=== PATIENT | female | born 1945 | race African-American/Black ===

== ENCOUNTER 2016-12-23 21:50 | Inpatient (IN) | payer OTHER ==
[~2016-12-23] VITALS: Ht 152.4 cm; Wt 79.9 kg
--- NOTE | ~2016-12-23 | P ---
[facility] [place] [address] PROCEDURE REPORT Name: TISH RANKIN Room #: 450-P ADM IN M.R.#: [id number] Admission: 12/23/16 Attend Phys: Justice Zamudio MD Discharge: Date of : 47 Report #: [id number] THIS REPORT FOR: //name// CC: [facility] physician/PCP Justice Zamudio MD Patient's Chart DATE OF SERVICE: 12/26/[address] Justice Zamudio. INDICATION FOR PROCEDURE: The patient has epigastric tenderness, nausea and vomiting. Informed consent for this procedure was obtained prior to the administration of any medication. The risks of the procedure include bleeding, perforation, infection, complications of sedation and the possibility I could miss something have been explained to the patient. She has indicated her consent by signing. Propofol was slowly titrated before and during this procedure for patient comfort by the anesthesia service. The Diabetican upper videoscope was introduced through the upper esophageal sphincter and advanced under direct visualization to the descending duodenum. Findings are noted on withdrawal of the scope. The duodenal mucosa appears normal throughout its entirety except for a nodular duodenal bulb. I biopsied this x 2 for histopathology with good hemostasis noted after the biopsies. Pylorus and in the prepyloric area, there is an erosive gastritis that is moderate. There are more erosions in the antrum and body of the stomach. Biopsies are obtained x 2 for histopathology. Cardia and fundus, normal mucosa. Retroflex view did not reveal any other abnormalities. The scope was withdrawn to the esophagus. The Z-line is appropriately located at the top of the gastric folds and appears normal. It appears the patient has sloughed some of the esophageal mucosa for some reason and it is being replaced now with more normal appearing tissue. Scope was withdrawn. The patient was turned for flexible sigmoidoscopy. IMPRESSION: 1. Nodular duodenal bulb biopsied for histopathology. 2. Distally erosive gastritis, biopsied for histopathology. Good hemostasis was noted after all biopsies. 3. Sloughing of the esophageal lining. It appears to be being replaced. My recommendations were for us to await the biopsy results. We will increase her PPIs to b.i.d. and we will proceed with flexible sigmoidoscopy at this time. [address] [address] PROCEDURE REPORT Name: TISH RANKIN Room #: 450-P [facility] IN .R.#: [id number] Admission: 12/23/16 Attend Phys: Justice Zamudio MD Discharge: Date of : 47 Report #: [id number] Thank you very much once again for allowing me to participate in her care, Dr. Zamudio. PROCEDURE: This is a flexible sigmoidoscopy with BICAP. INDICATIONS FOR PROCEDURE: Hematochezia, history of rectovaginal fistula, probably related to diverticulosis. Informed consent for this procedure was obtained prior to the administration of any medication. The risks of the procedure which include bleeding, perforation, infection, complications of sedation and the possibility I could miss something have been explained to the patient and she has indicated her consent by signing. Propofol was slowly titrated before and during this procedure and the EGD that preceded it. The Fujinon colonoscope was introduced through the anal sphincter and advanced under direct visualization to 25 cm. There is a lot of diverticulosis in the sigmoid colon and I cannot manage to advance the scope beyond this point because I cannot make the curve necessary to try to go into the more proximal lumen due to scarring from diverticulitis I suspect. Findings are noted on withdrawal of the scope. There are multiple uncomplicated diverticula in the sigmoid colon that I did visualize and in the upper rectum. In the distal rectum, there is a visible vessel and ulcer. It is nonbleeding at this time. I did go ahead and cauterize it though completely, so hopefully would not bleed any more. She also had an anal fissure that I cauterized lightly to try to get it to stop bleeding and it seems to be stable at this time. The patient did give a history of straining at stool and passing a hard stool and that was probably the etiology of the anal fissure. Retroflex view in the rectum did not reveal any further abnormalities. The scope was withdrawn. The patient went to the recovery area in stable condition. She tolerated the procedure well. IMPRESSION: 1. Sigmoid diverticulosis as above. 2. Distal rectal ulcer 2 mm x 3 mm with visible vessel in the ulcer that was cauterized and treated as above. 3. Anal fissure. My recommendations were for her to increase proton pump inhibitors to b.i.d. and await the biopsy results. We are going to start her on Colace 1 p.o. b.i.d. to try to keep her stool soft. We will also asked that she drink 8 glasses of liquid per day. Thank you very much once again for allowing me to participate in her care. <ELECTRONICALLY SIGNED> By: Alie Rainey DO 12/26/16 6935 1608 06 Alie Rainey DO /nt
--- NOTE | ~2016-12-23 | HC ---
[facility] [place] [address] CONSULTATION Name: TISH RANKIN Room #: 450-P ADM IN M.R.#: [id number] Admission: 12/23/16 Attend Phys: Justice Zamudio MD Discharge: Date of : 47 Report #: [id number] THIS REPORT FOR: //name// CC: [facility] physician/PCP Justice Zamudio DATE OF SERVICE: 12/23/2016 ATTENDING PHYSICIAN: Dr. Pedro. REASON FOR CONSULTATION: End-stage renal disease. HISTORY OF PRESENT ILLNESS: A 71-year-old patient well known to our service with multiple medical problems including diabetes and end-stage renal disease. She developed a couple of episodes of rectal bleeding yesterday. She is completely asymptomatic, but came to the Emergency Room. Her hemoglobin has dropped from 9.9-8.2. Blood pressure is on the low side. PAST MEDICAL HISTORY: End-stage renal disease, longstanding diabetes mellitus, previous right mastectomy for breast cancer, previous left nephrectomy for renal cell cancer, history of hypertension, previous cholecystectomy, cataract surgeries. HOME MEDICATIONS: Include insulin, atenolol 25 mg b.i.d., Arimidex 1 mg daily, Zoloft 150 mg at bedtime, omeprazole 20 mg daily, renal vitamin, and aspirin. ALLERGIES: Reportedly PENICILLIN. SOCIAL HISTORY: No cigarettes or alcohol. REVIEW OF SYSTEMS: GENERAL: She has been feeling reasonably well. EYES: Vision is okay. ENT: Hearing okay, swallows okay. No mouth sores or ulcers. ENDOCRINE: Positive for diabetes. RESPIRATORY: Denies shortness of breath, cough, hemoptysis. CARDIAC: No chest pain or angina. No arrhythmias, no palpitations. GASTROINTESTINAL: No abdominal pain, nausea, vomiting. GENITOURINARY: Not much in the way of urine these days. SKIN: No skin rashes noted. NEUROLOGIC: No seizure, syncope or stroke. She does get around with a walker. FAMILY HISTORY: Positive for diabetes and history of cancer. Extensive history taken from the electronic medical record from the patient herself. PHYSICAL EXAMINATION: [facility] [address] [place] [address] CONSULTATION Name: TISH RANKIN Room #: 450-[facility] IN ..#: [id number] Admission: 12/23/16 Attend Phys: Justice Zamudio MD Discharge: Date of : 47 Report #: [id number] GENERAL: She was seen in her hospital bed. SKIN: Unremarkable. SKELETAL: Shows her to be well developed, well nourished, somewhat obese. HEENT: Extraocular movements are full. Vision is intact. Hearing is intact. Mucous membranes are moist. Tongue, buccal mucosa benign. NECK: Supple. CHEST: Clear to auscultation. HEART: Regular, right arm fistula with good thrill and bruit. ABDOMEN: Soft and nontender. EXTREMITIES: Show no edema. Pulses somewhat diminished. LABORATORY DATA: Potassium is up to 5.9, creatinine 9.8, hemoglobin is 8.2, down from 9.9, platelets are 122. Chlorides were okay. ASSESSMENT AND PLAN: 1. Rectal bleed. She has bright red blood per rectum which needs to be investigated. Her hemoglobin is down, her blood pressure is down, we are going to hold her atenolol. She is getting IV fluids. Volume status seems to be okay. Depending on what her repeat blood pressure shows, we may or may continue the IV fluids. She will certainly need some dialysis today. This has been ordered with 2 potassium bath. 2. End-stage renal disease. 3. History of mastectomy for breast cancer, Arimidex. 4. History of nephrectomy for renal cell cancer. 5. Longstanding diabetes mellitus. 6. History of hypertension. <ELECTRONICALLY SIGNED> By: Ramakrishna Howe MD 12/24/16 1049 0934 1006 Ramakrishna Howe MD /nt
--- NOTE | ~2016-12-23 | S ---
[facility] [place] [address] SURGICAL PATH RPT PROCEDURE Name: TISH MACE Room #: 450-P [facility] IN M.R.#: [id number] Admission: 12/23/16 Date of : 47 Discharge: 12/28/16 Report #: [id number] Path Case #: [id number] PATHOLOGY REPORT COLLECTION DATE: 12/26/2016 RECEIVED DATE: 12/27/2016 SUBMITTING PHYS: Dr. Alie Rainey OTHER PHYS: Dr. Willis Stewart SPECIMEN(S) RECEIVED: A.Duodenal bulb nodules bx B.Gastric bx * * * * * * * * * * * * FINAL DIAGNOSIS: A. "Duodenal bulb nodules bx," biopsy: - Small bowel mucosa with peptic duodenitis including reactive appearing lymphoid aggregates and gastric metaplasia; no dysplasia seen. B. "Gastric bx," biopsy: - Gastric mucosa with mild reactive changes and mild chronic inflammation. - Negative H. pylori immunohistochemical stain (block B1); control reacted appropriately. (CLW:; d/t: 12/28/16) PATHOLOGIST: Izabel Collins M.D. REPORT ELECTRONICALLY SIGNED BY: Izabel Collins M.D. DATE/TIME: 12/28/2016 22:28 * * * * * * * * * * * * GROSS PATHOLOGY: A. Received in formalin labeled "Tish Mace, duodenal bulb nodules," are 3 segments of hastings soft tissue measuring 1.2 x 0.2 x 0.2 cm in aggregate dimensions and ranging from 0.3 to 0.7 cm in maximum dimension. The specimen is submitted entirely in cassette A1. B. Received in formalin labeled " Tish Mace, gastric," are 3 segments of hastings soft tissue measuring 1.0 x 0.2 x 0.2 cm in aggregate dimensions and ranging from 0.2 to 0.5 cm in maximum dimension. The specimen is submitted entirely in cassette B1. (RANDELL; 12/27/2016) CLINICAL HISTORY: ABD, epigastric pain [address] [address] SURGICAL PATH RPT PROCEDURE Name: TISH MACE Room #: 450-P DIS IN M.R.#: [id number] Admission: 12/23/16 Date of : 47 Discharge: 12/28/16 Report #: [id number] Path Case #: [id number] INITIAL CPT CODE(S): A; 04531 B; 07144, 70761 Professional services performed by [facility] at [address] , [place] [address] Technical services performed by [facility] at [address] [place] [address], [facility] [address] [address]. [facility] [address] [place] [address] PHONE: [phone] DIRECTOR: Ruddy Mccrary M.D. * * * END OF REPORT * * *
[~2016-12-23 21:50] MED LIST: ACETAMINOPHEN325 MG PO; ACETAMINOPHEN650 M5 PO; ACTOS 30 MG TAB30 M1 PO; ACTOS 30 MG TAB30 MG PO; ACYCLOVIR 200200 MG PO; ACYCLOVIR 800800 MG PO; ALEVE220 M1 PO; ALLOPURINOL 10100 M1 PO; ALPRAZOLAM 0.0.25 M1 PO; ANASTROZOLE1 MG PO; ANCEF 1GM1 GM/50 M2 IV; ARIMIDEX1 MG PO; ASPIR 8181 MG PO; ASPIRIN EC81 M1 PO; ASPIRIN325 PO; ATENOLOL 25 MG25 M1 PO; ATENOLOL 25MG T25 MG PO; CIPRO250 M1 PO; CIPROFLOXACIN500 M1 PO; FIRST AID ANT28.4 GM TP; FLAGYL500 MG PO; HUMALOG100 UNIT/1 SUBQ; HYDROCODON-ACE1 EAC7 PO; KEFLEX500 MG PO; LEVEMIR SUBQ; LOPRESSOR25 PO; MEDROLDOSEPACK PO; MULTIPLE VITAM1 EAC2 PO; NEPHRO-VITE RX1 TA1 PO; NORCO 5-325 TA1 EACH PO; NORCO 7.5-3251 EACH PO; NOVOLOG100 UNIT/M SUBQ; OMEPRAZOLE 20 M20 M1 PO; PERCOCET 5-3251 EACH PO; RENAL CAPS SOFTG1 MG PO; RENAL VITAMIN PO; RENVELA800 MG PO; ZOCOR PO; ZOLOFT100 MG PO; ZOLOFT50 MG PO; ZYLOPRIM PO
[2016-12-23 22:04] VITALS: BP 90/53
[2016-12-23 22:49] LABS: ABSOLUTE NEUTROPHILS 11.2 thou/uL (1.4-8.2); BASOPHILS 0.5 % (0.0-2.0); EOSINOPHILS 2.4 % (0.0-3.0); HEMATOCRIT 31.9 % (37.0-47.0); HEMOGLOBIN 9.9 gm/dL (12.0-15.0); LYMPHOCYTES 13.2 % (24.0-44.0); MCH 27.2 pg (26.0-34.0); MCHC 31.2 g/dL (28.0-37.0); MONOCYTES 8.3 % (1.0-8.0); POLYS 75.6 % (36.0-66.0); RBC 3.66 mil/uL (4.20-5.00); WBC 14.8 thou/uL (4.0-11.0)
[2016-12-23 22:53] LABS: CALCIUM 8.6 mg/dL (8.5-10.1); CREATININE 9.8 mg/dL (0.6-1.0); POTASSIUM 5.9 mmol/L (3.5-5.1)
[2016-12-23 23:04] LABS: APTT 25.1 Seconds (24.5-32.8); PROTIME 10.8 Seconds (9.3-11.4)
[2016-12-23 23:07] LABS: ALBUMIN 2.7 g/dL (3.4-5.0); TOTAL BILIRUBIN 0.9 mg/dL (<0.1-1.0); TOTAL PROTEIN 7.9 g/dL (6.4-8.2)
[2016-12-23 23:08] LABS: MANUAL DIFF NO
[2016-12-23 23:55] VITALS: BP 139/42
[2016-12-24 00:16] LABS: LARGE PLATELETS OCCASIONAL; PLATELET COUNT 170 thou/uL (150-400)
[2016-12-24 00:28] VITALS: BP 128/58
[2016-12-24 02:47] VITALS: BP 104/62
[2016-12-24 05:52] LABS: HEMATOCRIT 26.1 % (37.0-47.0); HEMOGLOBIN 8.2 gm/dL (12.0-15.0); MCH 27.4 pg (26.0-34.0); MCHC 31.5 g/dL (28.0-37.0); RDW 17.1 % (10.5-14.5)
[2016-12-24 07:25] VITALS: BP 79/81
[2016-12-24 10:15] VITALS: BP 102/62
[2016-12-24 12:46] VITALS: BP 133/58
[2016-12-24 13:14] LABS: HEMATOCRIT 23.8 % (37.0-47.0); HEMOGLOBIN 7.7 gm/dL (12.0-15.0)
[2016-12-24 20:00] VITALS: BP 94/56
[2016-12-25] VITALS: BP 98/54
[2016-12-25 04:00] VITALS: BP 103/65
[2016-12-25 05:38] LABS: HEMATOCRIT 24.7 % (37.0-47.0); MCH 27.7 pg (26.0-34.0); MCHC 32.4 g/dL (28.0-37.0); MCV 85.4 fL (80.0-100.0); RBC 2.89 mil/uL (4.20-5.00); RDW 16.4 % (10.5-14.5); WBC 8.9 thou/uL (4.0-11.0)
[2016-12-25 05:59] LABS: ALBUMIN 2.3 g/dL (3.4-5.0); CALCIUM 7.7 mg/dL (8.5-10.1); PHOSPHORUS 4.9 mg/dL (2.5-4.9); POTASSIUM 4.7 mmol/L (3.5-5.1)
[2016-12-25 06:04] LABS: CREATININE 5.6 mg/dL (0.6-1.0)
[2016-12-25 07:41] VITALS: BP 106/63
[2016-12-25 12:30] VITALS: BP 131/63
[2016-12-25 15:45] VITALS: BP 123/64
[2016-12-25 19:30] VITALS: BP 129/66
[2016-12-26 04:23] VITALS: BP 148/78
[2016-12-26 06:56] LABS: HEMATOCRIT 23.6 % (37.0-47.0); HEMOGLOBIN 7.7 gm/dL (12.0-15.0); MCH 27.7 pg (26.0-34.0); MCHC 32.8 g/dL (28.0-37.0); MCV 84.6 fL (80.0-100.0); RBC 2.79 mil/uL (4.20-5.00); RDW 16.3 % (10.5-14.5); WBC 8.3 thou/uL (4.0-11.0)
[2016-12-26 07:10] LABS: ALBUMIN 2.2 g/dL (3.4-5.0); CALCIUM 7.7 mg/dL (8.5-10.1); PHOSPHORUS 6.3 mg/dL (2.5-4.9); POTASSIUM 4.8 mmol/L (3.5-5.1)
[2016-12-26 12:00] VITALS: BP 105/65
[2016-12-26 13:17] LABS: HEMATOCRIT 24.7 % (37.0-47.0)
[2016-12-26 16:45] VITALS: BP 135/74
[2016-12-26 20:00] VITALS: BP 115/58
[2016-12-26 22:00] LABS: HEMATOCRIT 23.2 % (37.0-47.0); HEMOGLOBIN 7.5 gm/dL (12.0-15.0)
[2016-12-27 03:17] VITALS: BP 132/67
[2016-12-27 08:08] VITALS: BP 116/60
[2016-12-27 11:00] VITALS: BP 136/74
[2016-12-27 16:40] VITALS: BP 126/67
[2016-12-27 19:04] VITALS: BP 156/79
[2016-12-28] VITALS (7 sets, daily range): BP systolic 119–135; BP diastolic 62–67
[2016-12-28 06:00] LABS: HEMATOCRIT 21.3 % (37.0-47.0)
[2016-12-28 06:13] LABS: HEMOGLOBIN 6.9 gm/dL (12.0-15.0)
[2016-12-28 12:25] LABS: HEMATOCRIT 32.7 % (37.0-47.0); HEMOGLOBIN 10.7 gm/dL (12.0-15.0)
[2016-12-28] MEDS ORDERED: PANTOPRAZOLE SO40 M1 PO (12:43)
== END 2016-12-28 14:00 | disposition home health service (06) | DRG 393 ==
LOC: ER 21:50 → 4W 23:23 → EROBS 23:23 → 4W 23:58
PROVIDERS: Emergency Medicine; Internal Medicine; Internal Medicine Gastroenterology; Internal Medicine Nephrology; Nurse Practitioner Adult Health
PROC: 5A1D60Z (ICD-10-PCS; 2016-12-24)
PROC: 0DB68ZX Excision of Stomach, Via Natural or Artificial Opening Endoscopic, Diagnostic (ICD-10-PCS; principal; 2016-12-26)
PROC: 0DB98ZX Excision of Duodenum, Via Natural or Artificial Opening Endoscopic, Diagnostic (ICD-10-PCS; principal; 2016-12-26)
PROC: 30233N1 Transfusion of Nonautologous Red Blood Cells into Peripheral Vein, Percutaneous Approach (ICD-10-PCS; 2016-12-28)
DX: K62.6 Ulcer of anus and rectum (principal); K29.71 Gastritis, unspecified, with bleeding; N18.6 End stage renal disease; I12.0 Hypertensive chronic kidney disease with stage 5 chronic kidney disease or end stage renal disease; D62 Acute posthemorrhagic anemia; F32.9 Major depressive disorder, single episode, unspecified; E11.22 Type 2 diabetes mellitus with diabetic chronic kidney disease; G47.33 Obstructive sleep apnea (adult) (pediatric); E78.5 Hyperlipidemia, unspecified; Z60.2 Problems related to living alone; E87.5 Hyperkalemia; D72.829 Elevated white blood cell count, unspecified; Z85.3 Personal history of malignant neoplasm of breast; Z79.4 Long term (current) use of insulin; Z98.41 Cataract extraction status, right eye; Z90.49 Acquired absence of other specified parts of digestive tract; Z98.62 Peripheral vascular angioplasty status; Z79.899 Other long term (current) drug therapy; Z98.42 Cataract extraction status, left eye; Z88.0 Allergy status to penicillin; Z83.3 Family history of diabetes mellitus; Z80.9 Family history of malignant neoplasm, unspecified; Z86.73 Personal history of transient ischemic attack (TIA), and cerebral infarction without residual deficits; Z90.11 Acquired absence of right breast and nipple; Z80.3 Family history of malignant neoplasm of breast; Z79.82 Long term (current) use of aspirin; Z99.2 Dependence on renal dialysis
CPT/HCPCS: 10045; 32100; 62110; 62900; 70005

== ENCOUNTER 2017-04-04 12:45 | Emergency (ER) | payer OTHER | END 2017-04-04 15:52 | disposition home or self-care (01) | LOC: ER 12:45 | DX: S01.01XA Laceration without foreign body of scalp, initial encounter (principal); G47.30 Sleep apnea, unspecified; F32.9 Major depressive disorder, single episode, unspecified; E11.22 Type 2 diabetes mellitus with diabetic chronic kidney disease; N18.6 End stage renal disease; Z90.89 Acquired absence of other organs; Z86.2 Personal history of diseases of the blood and blood-forming organs and certain disorders involving the immune mechanism; Z86.73 Personal history of transient ischemic attack (TIA), and cerebral infarction without residual deficits; Z90.49 Acquired absence of other specified parts of digestive tract; Z99.2 Dependence on renal dialysis; Z79.4 Long term (current) use of insulin; Z88.0 Allergy status to penicillin; W01.190A Fall on same level from slipping, tripping and stumbling with subsequent striking against furniture, initial encounter; Y93.89 Activity, other specified; Y92.89 Other specified places as the place of occurrence of the external cause; Y99.8 Other external cause status ==

== ENCOUNTER 2017-09-13 12:35 | Inpatient (IN) | payer OTHER ==
[~2017-09-13] VITALS: Ht 152.4 cm; Wt 81.8 kg
--- NOTE | ~2017-09-13 | HC ---
[facility] [place] [address] CONSULTATION Name: TISH RANKIN Room #: 410-P ADM IN M.R.#: [id number] Admission: 09/13/17 Attend Phys: Kevon Lino MD Discharge: Date of : 47 Report #: [id number] THIS REPORT FOR: //name// CC: Kevon Mcelroy REASON FOR CONSULTATION: End-stage renal disease. REASON FOR PRESENTATION: Not feeling well of few days' duration. HISTORY OF PRESENT ILLNESS: A 71-year-old with past medical history of end-stage renal disease, maintained on hemodialysis every Saturday, Saturday and Saturday. She started to have some upper respiratory tract symptoms a few days ago associated with myalgias, cough productive of white sputum. She had felt extremely weak in the last few days and missed her dialysis yesterday. No reported chest pain. She tried some [id number] medications; however, this did not work with her. No fever or chills. No nausea or vomiting. She presented for further evaluation and management and was found to have an influenza B positive test and was admitted for further evaluation and management. I am being asked to evaluate her dialysis related issues. PAST MEDICAL HISTORY: 1. End-stage renal disease, maintained on hemodialysis every Saturday, Saturday and Saturday. 2. Status post mastectomy. 3. Left-sided nephrectomy. 4. Diabetes mellitus. 5. Cataract surgeries. 6. Right upper AV fistula. 7. Port. Port placement and removal. 8. Transient ischemic attack. 9. Appendectomy. 10. Coronary artery disease. 11. Obstructive sleep apnea. SOCIAL HISTORY: No drug or alcohol abuse. FAMILY HISTORY: Significant for hypertension. ALLERGIES: PENICILLIN. MEDICATIONS: 1. Humalog. 2. Arimidex. 3. Folic acid. 4. Aspirin. [facility] [address] [place] [address] CONSULTATION Name: TISH RANKIN Margaret Room #: 410-P [facility] IN [facility]#: [id number] Admission: 09/13/17 Attend Phys: Kevon Lino MD Discharge: Date of : 47 Report #: [id number] REVIEW OF SYSTEMS: GENERAL: No fever or chills, but significant weakness. CARDIOVASCULAR: Occasional shortness of breath. PULMONARY: Significant for cough, no hemoptysis. GASTROINTESTINAL: Decreased p.o. intake. GENITOURINARY: Anuric. NEUROLOGICAL: Significant for weakness, but no syncope. PHYSICAL EXAMINATION: VITAL SIGNS: Blood pressure 150/58. HEAD AND NECK: No jugular venous distention, no bruit, no thyromegaly. CHEST: Clear to auscultation bilaterally. CARDIOVASCULAR: Regular with no rub. ABDOMEN: Soft, nontender with no hepatosplenomegaly. Scar from the previous surgeries. LOWER EXTREMITIES: No edema with intact peripheral pulses. UPPER EXTREMITIES: Right AV fistula. LABORATORY DATA: Reviewed. White blood cell count is normal. Sodium 138, creatinine 10.3, glucose 178, calcium 8.3. ASSESSMENT, IMPRESSION AND PLAN: 1. End-stage renal disease. 2. Flu. 3. Diabetes mellitus. 4. Hypertension. 5. The patient is currently being treated for her influenza. Since she missed her dialysis treatment yesterday, we will go ahead and place her on the machine today. 6. Discontinue IV fluid. 7. Resume her home medications. 8. We will continue to follow along. <ELECTRONICALLY SIGNED> By: Gigi Siegel MD 09/15/17 1703 0803 1046 Gigi Siegel MD /nt
--- NOTE | ~2017-09-13 | EKG ---
[address] [place] [address] ELECTROCARDIOGRAM REPORT Name: TISH RANKIN Room #: 410-[facility] IN M.R.#: [id number] Admission: 09/13/17 Attend Phys: Kevon Lino MD Discharge: Date of : 47 Report #: [id number] THIS REPORT FOR: //name// [facility] ED Test Date: 2017-09-13 Test Time: 13:41:37 Pat Name: TISH RANKIN Department: Room: 410 Gender: F Mine Manager: LUPE : 1945 Requested By: Derian Flynn Order Number: [id number] MD: Lonnie Son Measurements Intervals [place] Rate: 98 P: 50 HI: 158 QRS: -34 QRSD: 82 T: 39 QT: 381 QTc: 487 Interpretive Statements Sinus tachycardia Atrial premature complexes Left axis deviation Abnormal R-wave progression, late transition Borderline prolonged QT interval Compared to ECG 07/16/2016 08:44:01 Atrial premature complex(es) now present Electronically Signed On 09-14-2017 14:34:46 [employer] CH[employer]OOK[employer] MACHINE by Lonnie Son [email or web address] <ELECTRONICALLY SIGNED> By: Lonnie Son MD, [facility] 09/14/17 1434 1341 1341 Lonnie Son MD, [facility] /EPI
[2017-09-13 12:35] VITALS: BP 175/72
[~2017-09-13 12:35] MED LIST changes: +PANTOPRAZOLE SO40 M1 PO
[2017-09-13 13:22] LABS: HEMATOCRIT 35.1 % (37.0-47.0); HEMOGLOBIN 10.6 gm/dL (12.0-15.0); MCH 23.7 pg (26.0-34.0); MCHC 30.1 g/dL (28.0-37.0); MCV 78.7 fL (80.0-100.0); PLATELET COUNT 221 thou/uL (150-400); RBC 4.46 mil/uL (4.20-5.00); RDW 18.6 % (10.5-14.5); WBC 8.9 thou/uL (4.0-11.0)
[2017-09-13 13:30] LABS: ANION GAP 13 mmol/L (7-16); BUN 51 mg/dL (7-18); CALCIUM 8.3 mg/dL (8.5-10.1); CHLORIDE 98 mmol/L (98-107); CO2 27 mmol/L (21-32); CREATININE 10.3 mg/dL (0.6-1.0); GLUCOSE 178 mg/dL (74-106); POTASSIUM 4.5 mmol/L (3.5-5.1); SODIUM 138 mmol/L (136-145)
[2017-09-13 13:38] LABS: TROPONIN-I < 0.04 ng/mL (<0.06)
[2017-09-13 13:39] LABS: ABSOLUTE NEUTROPHILS 6.7 thou/uL (1.4-8.2); ANISOCYTOSIS 1+
[2017-09-13 14:18] VITALS: BP 170/76
[2017-09-13 14:58] VITALS: BP 174/68
[2017-09-13 15:56] VITALS: BP 159/63
[2017-09-13 19:28] VITALS: BP 146/56
[2017-09-14 04:22] VITALS: BP 158/58
[2017-09-14 08:40] VITALS: BP 140/72
[2017-09-14 16:22] VITALS: BP 124/61
[2017-09-14 19:27] VITALS: BP 123/62
[2017-09-15 05:05] VITALS: BP 145/66
[2017-09-15 08:34] VITALS: BP 137/115
[2017-09-15 16:50] VITALS: BP 127/61
[2017-09-15 20:04] VITALS: BP 136/56
[2017-09-16 04:05] VITALS: BP 149/56
[2017-09-16 08:02] VITALS: BP 151/76
[2017-09-16 09:50] VITALS: BP 151/76
[2017-09-16 16:31] VITALS: BP 132/52
[2017-09-16 21:05] VITALS: BP 123/60
[2017-09-17 05:16] VITALS: BP 140/66
[2017-09-17 09:54] VITALS: BP 148/62
[2017-09-17 17:22] VITALS: BP 127/55
[2017-09-17 20:03] VITALS: BP 134/60
[2017-09-18 04:17] VITALS: BP 153/70
[2017-09-18 07:45] VITALS: BP 142/68
[2017-09-18 12:05] VITALS: BP 128/64
[2017-09-18 15:41] VITALS: BP 107/55
== END 2017-09-18 19:04 | DRG 193 ==
LOC: ER 12:35 → EROBS 13:47 → 4N 13:47
PROVIDERS: Physician Assistant
PROC: 5A1D70Z Performance of Urinary Filtration, Intermittent, Less than 6 Hours Per Day (ICD-10-PCS; principal; 2017-09-14)
PROC: 5A1D70Z Performance of Urinary Filtration, Intermittent, Less than 6 Hours Per Day (ICD-10-PCS; 2017-09-16)
PROC: 5A1D70Z Performance of Urinary Filtration, Intermittent, Less than 6 Hours Per Day (ICD-10-PCS; 2017-09-18)
DX: J11.08 Influenza due to unidentified influenza virus with specified pneumonia (principal); N18.6 End stage renal disease; I12.0 Hypertensive chronic kidney disease with stage 5 chronic kidney disease or end stage renal disease; F32.9 Major depressive disorder, single episode, unspecified; E11.22 Type 2 diabetes mellitus with diabetic chronic kidney disease; E11.649 Type 2 diabetes mellitus with hypoglycemia without coma; Z99.2 Dependence on renal dialysis; G47.33 Obstructive sleep apnea (adult) (pediatric); I25.10 Atherosclerotic heart disease of native coronary artery without angina pectoris; Z79.4 Long term (current) use of insulin; Z90.49 Acquired absence of other specified parts of digestive tract; Z90.10 Acquired absence of unspecified breast and nipple; Z90.5 Acquired absence of kidney; Z88.0 Allergy status to penicillin; Z86.73 Personal history of transient ischemic attack (TIA), and cerebral infarction without residual deficits; Z98.49 Cataract extraction status, unspecified eye; Z82.49 Family history of ischemic heart disease and other diseases of the circulatory system
CPT/HCPCS: 10091; 32100

== ENCOUNTER 2017-10-10 14:03 | Inpatient (IN) | payer OTHER ==
[~2017-10-10] VITALS: Ht 152.4 cm; Wt 71.8 kg
--- NOTE | ~2017-10-10 | EKG ---
[address] [address] ELECTROCARDIOGRAM REPORT Name: TISH RANKIN Room #: 170-4 ADM IN M.R.#: [id number] Admission: 10/10/17 Attend Phys: Justice Zamudio MD Discharge: Date of : 47 Report #: [id number] THIS REPORT FOR: //name// [facility] ED Test Date: 2017-10-10 Test Time: 14:54:52 Pat Name: TISH RANKIN Department: Room: 170 Gender: F Ecclesiastical Worker: DARIUSZ : 1945 Requested By: Breezy Rachel Order Number: [id number] MD: Lonnie Son Measurements Intervals [place] Rate: 82 P: 47 DC: 167 QRS: -21 QRSD: 102 T: 20 QT: 428 QTc: 500 Interpretive Statements Sinus rhythm Borderline left axis deviation Borderline T wave abnormalities Borderline prolonged QT interval Compared to ECG 09/13/2017 13:41:37 T-wave abnormality now present Atrial premature complex(es) no longer present Electronically Signed On 10-10-2017 16:13:03 GOLF COURSE SUPERINTENDENT by Lonnie Son [email or web address] <ELECTRONICALLY SIGNED> By: Lonnie Son MD, [facility] 10/10/17 1613 1454 1454 Lonnie Son MD, [facility] /EPI
--- NOTE | ~2017-10-10 | HC ---
[facility] [address] [facility] [place] [address] CONSULTATION Name: TISH RANKIN Room #: 217-P [facility] IN M.R.#: [id number] Admission: 10/10/17 Attend Phys: Justice Zamudio MD Discharge: Date of : 47 Report #: [id number] THIS REPORT FOR: //name// CC: Justice Mcelroy REASON FOR PRESENTATION: Weakness, hypotension, lethargic. HISTORY OF PRESENT ILLNESS: This is a very well known patient to me. She has an end-stage renal disease, maintained on hemodialysis every Saturday, Saturday and Saturday. She currently resides at the [facility]. She is a breast cancer survivor. She has had repeated issues with her gastrointestinal tract including GI bleeding, diverticulosis. She also had numerous renal issues in the past including nephrolithiasis with pyelonephritis and complicated obstructive uropathy. She was recently discharged from the hospital after being treated for flu. She dialyzes every Saturday, Saturday and Saturday. She presented to the hospital from her [facility] facility with weakness, lethargic, post-dialysis. She denies any chest pain or shortness of breath. She did have some issues with decreased p.o. intake. She is not really sure about the amount of the fluid that was removed with the dialysis yesterday. I am being consulted to manage her end-stage renal disease. PAST MEDICAL HISTORY: 1. End-stage renal disease. 2. Nephrolithiasis. 3. Mastectomy. 4. Renal mass. 5. Diverticular disease. 6. Colovesical fistula. 7. Recent influenza. 8. Sarcoidosis. 9. AV fistula. 10. Repeated episodes of GI bleed and diverticulitis. 11. TIA. 12. Hyperlipidemia. 13. Left shoulder surgery. 14. Cholecystectomy. ALLERGIES: PENICILLIN. FAMILY HISTORY: Significant for heart disease and diabetes mellitus. SOCIAL HISTORY: . No drug or alcohol abuse. She resides at the [facility]. REVIEW OF SYSTEMS: GENERAL: Significant for weakness. [facility] [address] [place] [address] CONSULTATION Name: TISH RANKIN Room #: 217-P [facility] IN ..#: [id number] Admission: 10/10/17 Attend Phys: Justice Zamudio MD Discharge: Date of : 47 Report #: [id number] CARDIOVASCULAR: No chest pain or palpitation. PULMONARY: No cough or hemoptysis. GASTROINTESTINAL: No nausea or vomiting, but decreased p.o. intake. MUSCULOSKELETAL: Occasional back pain and neck pain. NEUROLOGICAL: Weakness, but no syncope. SKIN: No rash or ulcerations. PHYSICAL EXAMINATION: GENERAL: She is alert, very weak. VITAL SIGNS: Blood pressure is 89/49, temperature 36.9. Pulse rate 89. HEAD AND NECK: No jugular venous distention, no bruit, no thyromegaly. CHEST: Decreased air entry bilaterally. CARDIOVASCULAR: Regular, with no rub. ABDOMEN: Soft, nontender. LOWER EXTREMITIES: No edema. LABORATORY DATA: Reviewed. White blood cell count was elevated at 21.2. BUN is 33, creatinine is 5.3. Cultures are pending. C. diff is pending. CT head was negative except for chronic changes. Chest x-ray with no acute finding. ASSESSMENT, IMPRESSION AND PLAN: 1. End-stage renal disease. 2. Leukocytosis. 3. Hypokalemia. 4. Breast cancer. 5. History of repeated episodes of gastrointestinal bleeding. 6. Remote history of nephrolithiasis. 7. Renal mass. 8. Colovesical fistula in the past. 9. The patient is being appropriately worked up for the source of her leukocytosis. She is currently maintained on Flagyl. C. diff pending. 10. Other antibiotics were given appropriately. 11. Potassium was replaced. Blood pressure seems to be marginal and she received some fluid yesterday. We will hold on any further fluid; however, she might need further boluses if she continues to be hypertensive with decreased p.o. intake. 12. Hemodialysis will be done tomorrow on high K bath with very gentle ultrafiltration. <ELECTRONICALLY SIGNED> By: Gigi Siegel MD 10/12/17 1151 1031 99 Gigi Siegel MD /nt
[2017-10-10 14:03] VITALS: BP 77/40
[2017-10-10 14:50] LABS: HEMATOCRIT 30.5 % (37.0-47.0); MCH 22.8 pg (26.0-34.0); MCHC 29.4 g/dL (28.0-37.0); MCV 77.6 fL (80.0-100.0); RBC 3.93 mil/uL (4.20-5.00); RDW 20.2 % (10.5-14.5); WBC 21.2 thou/uL (4.0-11.0)
[2017-10-10 14:59] LABS: ANION GAP 10 mmol/L (7-16); BUN 28 mg/dL (7-18); CALCIUM 8.8 mg/dL (8.5-10.1); CHLORIDE 97 mmol/L (98-107); CO2 29 mmol/L (21-32); CREATININE 5.2 mg/dL (0.6-1.0); GLUCOSE 125 mg/dL (74-106); SODIUM 136 mmol/L (136-145)
[2017-10-10 15:01] LABS: POTASSIUM 2.8 mmol/L (3.5-5.1)
[2017-10-10 15:09] LABS: ALBUMIN 1.5 g/dL (3.4-5.0); SGOT 25 U/L (15-37); SGPT 14 U/L (30-65); TOTAL BILIRUBIN 0.3 mg/dL (<0.1-1.0); TOTAL PROTEIN 7.9 g/dL (6.4-8.2); TROPONIN-I < 0.04 ng/mL (<0.06)
[2017-10-10 17:21] VITALS: BP 94/48
[2017-10-10 18:40] VITALS: BP 115/54; BP 83/34
[2017-10-10 23:59] VITALS: BP 82/43
[2017-10-11 04:13] VITALS: BP 94/55
[2017-10-11 04:38] LABS: HEMATOCRIT 29.3 % (37.0-47.0); HEMOGLOBIN 8.5 gm/dL (12.0-15.0); MCH 22.8 pg (26.0-34.0); MCV 78.7 fL (80.0-100.0); PLATELET COUNT 291 thou/uL (150-400); RBC 3.72 mil/uL (4.20-5.00); RDW 20.4 % (10.5-14.5); WBC 19.1 thou/uL (4.0-11.0)
[2017-10-11 05:04] LABS: CALCIUM 8.1 mg/dL (8.5-10.1); CREATININE 5.3 mg/dL (0.6-1.0); MAGNESIUM 1.9 mg/dL (1.8-2.4); POTASSIUM 3.2 mmol/L (3.5-5.1)
[2017-10-11 06:18] LABS: ABSOLUTE NEUTROPHILS 16.4 thou/uL (1.4-8.2); ANISOCYTOSIS 3+; HYPOCHROMASIA 1+
[2017-10-11 06:27] LABS: LARGE PLATELETS OCCASIONAL; POLYCHROMASIA OCCASIONAL
[2017-10-11 07:05] VITALS: BP 84/49
[2017-10-11 11:20] VITALS: BP 92/52
[2017-10-11 16:00] VITALS: BP 91/50
[2017-10-11 19:31] VITALS: BP 107/49
[2017-10-12 04:18] VITALS: BP 89/49
[2017-10-12 08:05] VITALS: BP 92/46
[2017-10-12 08:21] LABS: HEMOGLOBIN 8.9 gm/dL (12.0-15.0); MCH 22.5 pg (26.0-34.0); MCHC 28.8 g/dL (28.0-37.0); MCV 78.2 fL (80.0-100.0); PLATELET COUNT 310 thou/uL (150-400); RBC 3.97 mil/uL (4.20-5.00); RDW 21.1 % (10.5-14.5)
[2017-10-12 08:30] LABS: CALCIUM 8.6 mg/dL (8.5-10.1); POTASSIUM 3.2 mmol/L (3.5-5.1)
[2017-10-12 08:33] LABS: CREATININE 7.3 mg/dL (0.6-1.0)
[2017-10-12 09:46] LABS: ABSOLUTE NEUTROPHILS 17.3 thou/uL (1.4-8.2); ANISOCYTOSIS 2+; HYPOCHROMASIA 2+; NUCLEATED RBCS 1 /100WBC
[2017-10-12 09:47] LABS: POLYCHROMASIA OCCASIONAL
[2017-10-12 11:50] VITALS: BP 82/39
[2017-10-12 16:00] VITALS: BP 103/47
[2017-10-12 19:52] VITALS: BP 95/50
[2017-10-13 04:44] LABS: HEMATOCRIT 29.2 % (37.0-47.0); HEMOGLOBIN 8.6 gm/dL (12.0-15.0); MCH 22.7 pg (26.0-34.0); MCHC 29.4 g/dL (28.0-37.0); MCV 77.1 fL (80.0-100.0); RBC 3.79 mil/uL (4.20-5.00); RDW 20.9 % (10.5-14.5); WBC 17.5 thou/uL (4.0-11.0)
[2017-10-13 04:56] LABS: CALCIUM 8.2 mg/dL (8.5-10.1); POTASSIUM 3.7 mmol/L (3.5-5.1)
[2017-10-13 05:05] LABS: CREATININE 4.2 mg/dL (0.6-1.0)
[2017-10-13 05:22] VITALS: BP 99/57
[2017-10-13 08:10] VITALS: BP 91/62
[2017-10-13 12:30] VITALS: BP 100/64
[2017-10-13 15:35] VITALS: BP 108/62
[2017-10-13 21:06] VITALS: BP 106/50
[2017-10-14 03:55] LABS: HEMATOCRIT 32.2 % (37.0-47.0); HEMOGLOBIN 9.4 gm/dL (12.0-15.0); MCH 22.6 pg (26.0-34.0); MCHC 29.1 g/dL (28.0-37.0); MCV 77.6 fL (80.0-100.0); RBC 4.15 mil/uL (4.20-5.00); WBC 12.6 thou/uL (4.0-11.0)
[2017-10-14 04:00] LABS: CALCIUM 8.3 mg/dL (8.5-10.1); POTASSIUM 3.6 mmol/L (3.5-5.1)
[2017-10-14 04:02] LABS: CREATININE 5.7 mg/dL (0.6-1.0)
[2017-10-14 04:26] VITALS: BP 86/43
[2017-10-14 08:05] VITALS: BP 118/56
[2017-10-14 12:25] VITALS: BP 110/51
[2017-10-14 14:09] LABS: HEPATITIS B SURFACE AG Negative (Negative)
[2017-10-14 16:15] VITALS: BP 97/55
[2017-10-14 20:37] VITALS: BP 103/59
[2017-10-14 23:49] VITALS: BP 118/55
[2017-10-15 03:27] VITALS: BP 120/64
[2017-10-15 08:05] VITALS: BP 124/68
[2017-10-15 12:10] VITALS: BP 133/66
[2017-10-15 14:46] LABS: HEMATOCRIT 30.7 % (37.0-47.0); HEMOGLOBIN 8.9 gm/dL (12.0-15.0); MCH 22.7 pg (26.0-34.0); MCHC 29.1 g/dL (28.0-37.0); MCV 77.9 fL (80.0-100.0); RBC 3.94 mil/uL (4.20-5.00); RDW 21.3 % (10.5-14.5); WBC 18.1 thou/uL (4.0-11.0)
[2017-10-15 14:58] LABS: CALCIUM 7.9 mg/dL (8.5-10.1); MAGNESIUM 2.3 mg/dL (1.8-2.4); POTASSIUM 4.2 mmol/L (3.5-5.1)
[2017-10-15 14:59] LABS: CREATININE 7.3 mg/dL (0.6-1.0)
[2017-10-15 16:55] VITALS: BP 132/66
[2017-10-15 19:04] VITALS: BP 106/54
[2017-10-16 04:14] LABS: ALBUMIN 1.4 g/dL (3.4-5.0); CREATININE 8.1 mg/dL (0.6-1.0); PHOSPHORUS 5.3 mg/dL (2.5-4.9); POTASSIUM 3.4 mmol/L (3.5-5.1)
[2017-10-16 04:39] VITALS: BP 120/60
[2017-10-16 07:39] VITALS: BP 116/58
[2017-10-16 08:00] LABS: HEMATOCRIT 31.3 % (37.0-47.0); HEMOGLOBIN 8.9 gm/dL (12.0-15.0); MCH 22.5 pg (26.0-34.0); MCHC 28.4 g/dL (28.0-37.0); RBC 3.96 mil/uL (4.20-5.00); RDW 21.8 % (10.5-14.5); WBC 11.7 thou/uL (4.0-11.0)
[2017-10-16] MEDS ORDERED: NOVOLOG100 UNIT/1 SUBQ (11:01)
[2017-10-16] MEDS ORDERED: VANCOMYCIN HCL10 GM PO (11:01)
[2017-10-16] MEDS ORDERED: PROBIOTIC1 EAC1 PO (11:04)
[2017-10-16 12:26] VITALS: BP 105/49
== END 2017-10-16 19:30 | DRG 871 ==
LOC: ER 14:03 → 2N 15:32 → EROBS 15:32 → 2N 18:31
PROVIDERS: Emergency Medicine; Hospitalist; Internal Medicine; Internal Medicine Nephrology; Nurse Practitioner
PROC: 5A1D70Z Performance of Urinary Filtration, Intermittent, Less than 6 Hours Per Day (ICD-10-PCS; principal; 2017-10-11)
PROC: 5A1D70Z Performance of Urinary Filtration, Intermittent, Less than 6 Hours Per Day (ICD-10-PCS; 2017-10-14)
PROC: 5A1D70Z Performance of Urinary Filtration, Intermittent, Less than 6 Hours Per Day (ICD-10-PCS; 2017-10-16)
DX: A41.9 Sepsis, unspecified organism (principal); N18.6 End stage renal disease; E43 Unspecified severe protein-calorie malnutrition; A04.72 Enterocolitis due to Clostridium difficile, not specified as recurrent; I12.0 Hypertensive chronic kidney disease with stage 5 chronic kidney disease or end stage renal disease; F32.9 Major depressive disorder, single episode, unspecified; E87.6 Hypokalemia; I95.9 Hypotension, unspecified; E11.22 Type 2 diabetes mellitus with diabetic chronic kidney disease; D63.8 Anemia in other chronic diseases classified elsewhere; K57.30 Diverticulosis of large intestine without perforation or abscess without bleeding; E78.5 Hyperlipidemia, unspecified; Z82.49 Family history of ischemic heart disease and other diseases of the circulatory system; Z90.11 Acquired absence of right breast and nipple; Z85.3 Personal history of malignant neoplasm of breast; Z98.42 Cataract extraction status, left eye; Z90.5 Acquired absence of kidney; Z98.41 Cataract extraction status, right eye; Z86.73 Personal history of transient ischemic attack (TIA), and cerebral infarction without residual deficits; Z90.49 Acquired absence of other specified parts of digestive tract; Z88.0 Allergy status to penicillin; Z68.30 Body mass index [BMI] 30.0-30.9, adult; Z85.048 Personal history of other malignant neoplasm of rectum, rectosigmoid junction, and anus; Z83.3 Family history of diabetes mellitus; Z79.899 Other long term (current) drug therapy; Z99.2 Dependence on renal dialysis
CPT/HCPCS: 10081; 32100

== ENCOUNTER 2017-11-11 15:50 | Inpatient (IN) | payer OTHER ==
[~2017-11-11] VITALS: Ht 152.4 cm; Wt 73.7 kg
[2017-11-11] VITALS (8 sets, daily range): BP systolic 94–117; BP diastolic 41–94
--- NOTE | ~2017-11-11 | HC ---
[facility] [place] [address] CONSULTATION Name: TISH RANKIN Room #: 243-P [facility] IN M.R.#: [id number] Admission: 11/11/17 Attend Phys: Db Sr DO Discharge: Date of : 47 Report #: [id number] THIS REPORT FOR: //name// CC: Db Mcelroy TYPE OF REPORT: Infectious diseases consultation. REASON FOR CONSULTATION: I was asked to evaluate concerning sepsis and intra-abdominal abscess. HISTORY OF PRESENT ILLNESS: The patient was a 72-year old with end-stage renal disease, on hemodialysis. Diagnosed with influenza last month. This was complicated by a suspected bacterial pneumonia. During treatment for this, she developed C. difficile colitis. She was treated with enteral antibiotics for her C. difficile colitis and was transferred to extended care facility. She had completed a course of antibiotics. She was at dialysis yesterday when she had acute change in mental status with shortness of breath and hypotension. Transferred to Emergency Room and then to the Intensive Care Unit. She has had liquid stools. She had lower abdominal tenderness. Imaging studies showed evidence of colitis and pelvic abscesses. PAST MEDICAL HISTORY: End-stage renal disease, diabetes, right breast cancer status post mastectomy, renal cell carcinoma, status post left nephrectomy, hypotension, rectal ulcer with bleed, suspected colovaginal fistula, right AV fistula, cholecystectomy and diverticulitis. ALLERGIES: PENICILLIN. MEDICATIONS: As noted on her MAR, having been started on broad antibiotic coverage. FAMILY HISTORY: Coronary artery disease and diabetes. SOCIAL HISTORY: and nonsmoker. No significant alcohol intake. REVIEW OF SYSTEMS: The patient was a poor historian. No report of chest pain. No cough or sputum production. PHYSICAL EXAMINATION: VITAL SIGNS: Afebrile, blood pressure in the 90s systolic and heart rate 100 on 2 liters of oxygen per nasal cannula. GENERAL: She was alert and reasonably cooperative. She was obese. Right upper extremity AV fistula was unremarkable. Right mastectomy scar unremarkable. No adenopathy. LUNGS: Clear. HEART: Regular. [facility] [address] [place] [address] CONSULTATION Name: TISH RANKIN Margaret Room #: 243-P [facility] IN .R.#: [id number] Admission: 11/11/17 Attend Phys: Db Sr DO Discharge: Date of : 47 Report #: [id number] ABDOMEN: Had midline lower abdominal hernia, which was reducible. Overall, soft and tender in the lower abdomen. RECTAL: Showed no masses. She had hastings colored liquid stool present. She had an unstageable sacral wound over the coccyx. EXTREMITIES: Unremarkable. LABORATORY STUDIES: Blood cultures are pending. Hemoglobin 7.3; WBC 35.2 and platelet count 219,000. Sodium 139, potassium 4.1, bicarbonate 22 and creatinine 3.2. Albumin 1.5. Lactate 1. Procalcitonin 2.1. Troponin negative. RADIOLOGICAL DATA: CT scan as noted above. IMPRESSION: A 72-year-old with end-stage renal disease and diabetes, presents now with Clostridium difficile colitis and suspect exacerbated diverticulitis with intra-abdominal abscess. RECOMMENDATIONS: Recommend broad antibiotic coverage with vancomycin and Merrem for associated bacteria and enteral vancomycin for her C. diff. I have also given metronidazole intravenously. We will obtain aspirate of the pelvic fluid collections for culture. I have discussed with General Surgery general approach to this patient's condition. I have also discussed with Nephrology regarding her dialysis in this setting. <ELECTRONICALLY SIGNED> By: Moe Galvez MD 11/13/17 1208 05 0008 Moe Galvez MD /nt
--- NOTE | ~2017-11-11 | EKG ---
[place] [address] [employer] [employer] [facility] [place] [address] ELECTROCARDIOGRAM REPORT Name: TISH RANKIN Room #: 243-P [facility] IN M.R.#: [id number] Admission: 11/11/17 Attend Phys: Db Sr DO Discharge: Date of : 46 Report #: [id number] THIS REPORT FOR: //name// [facility] ED Test Date: 2017-11-11 Test Time: 15:45:22 Pat Name: TISH RANKIN Department: Room: 243 Gender: F Title Examiner: LUPE : 1945 Requested By: Breezy Rachel Order Number: [id number] MD: Lonnie Son Measurements Intervals [place] Rate: 110 P: 72 SD: 147 QRS: -9 QRSD: 92 T: 60 QT: 371 QTc: 503 Interpretive Statements Sinus tachycardia Ventricular premature complex Borderline low voltage, extremity leads Prolonged QT interval Compared to ECG 10/10/2017 14:54:52 Ventricular premature complex(es) now present T wave abnormality is less pronounced Electronically Signed On 11-12-2017 9:46:18 CDT by Lonnie Son [email or web address] <ELECTRONICALLY SIGNED> By: Lonnie Son MD, [facility] 11/12/17 0946 1545 1545 Lonnie Son MD, [facility] /EPI
--- NOTE | ~2017-11-11 | DEA ---
[facility] [place] [address] SUMMARY Name: TISH RANKIN Room #: 243-P [facility] IN M.R.#: [id number] Admission: 11/11/17 Attend Phys: Db Sr DO Discharge: 11/19/17 Date of : 46 Report #: [id number] THIS REPORT FOR: //name// CC: Db Mcelroy DATE OF SERVICE: 11/19/2017 TIME OF : 02:47 a.m. on 11/19/2017. HOSPITAL COURSE: The patient is a 72-year-old -[place]ym[place] female with past medical history of end-stage renal disease, on hemodialysis; diabetes mellitus; hypertension; obstructive sleep apnea; coronary artery disease, status post angioplasty; sacral decubitus ulcer; severe PCM; recent hospitalization for sepsis; pneumonia and C. diff colitis. She was admitted with worsening foul-smelling diarrhea, hypotension and decreased level of consciousness. She was found to have a marked leukocytosis, right perihilar infiltrate and significant colonic inflammation with foul-smelling discharge from both the rectum and vagina. She was diagnosed with colovaginal fistula. She underwent percutaneous drainage of a pelvic abscess by IR. She was started on IV antibiotics. Her white count did improve slightly down to 28,000, but unfortunately, the patient did worsen. The patient was a DNR/DNI per family request and the patient did pass away due to massive sepsis at the above date and time. The body was released to the family. <ELECTRONICALLY SIGNED> By: Db Sr DO 11/25/17 1237 1202 1214 Db Sr DO /nt
--- NOTE | ~2017-11-11 | HC ---
[facility] [place] [place] [address] CONSULTATION Name: TISH RANKIN Room #: 243-P ADM IN M.R.#: [id number] Admission: 11/11/17 Attend Phys: Db Sr DO Discharge: Date of : 47 Report #: [id number] THIS REPORT FOR: //name// CC: [facility] DATE OF SERVICE: 11/12/2017 GENERAL SURGERY CONSULT REFERRING PROVIDER: Db Sr DO REASON FOR CONSULTATION: Abdominal pain. HISTORY OF PRESENT ILLNESS: The patient is a 72-year-old -[place] female with a significant past medical history including end-stage renal disease on hemodialysis, diabetes mellitus, prior renal cell carcinoma status post nephrectomy, colovaginal fistula with multiple prior diverticular flares, right breast cancer, generalized debility and abdominal pain with early sepsis. The patient was recently admitted for influenza and transitioned to a long-term. As the patient had worsening hypotension with a marked leukocytosis, she was transitioned back to the hospital where a CT scan and laboratories were obtained. The patient had a marked leukocytosis with a white blood cell count of 30,[address] scan showed descending and sigmoid colonic thickening with multiple pelvic abscesses. As such, I am asked to evaluate. PAST MEDICAL HISTORY: End-stage renal disease, diabetes mellitus, right breast cancer status post mastectomy, renal cell carcinoma status post left nephrectomy, hypotension, rectal ulcer with bleeding, colovaginal fistula, right AV fistula, cholecystectomy, diverticulitis, generalized debility and protein calorie malnutrition. MEDICATIONS: Humalog, Arimidex, folic acid, aspirin and broad spectrum antibiotics. ALLERGIES: PENICILLIN. SOCIAL HISTORY: Does not utilize tobacco, alcohol or illicit drugs. FAMILY HISTORY: Reviewed and noncontributory. REVIEW OF SYSTEMS: A poor historian, although she does answer questions appropriately. GENERAL: Denies fevers and chills. HEENT: No change in vision, change in hearing. NECK: No swelling or difficulty swallowing. [facility] [address] [place] [address] CONSULTATION Name: TISH RANKIN Room #: [facility] IN ..#: [id number] Admission: 11/11/17 Attend Phys: Db Sr DO Discharge: Date of : 46 Report #: [id number] HEART: No chest pain or palpitations. LUNGS: No cough or shortness of breath. ABDOMEN: Minimal abdominal pain, but no nausea or vomiting. GENITOURINARY: No dysuria or hematuria. ENDOCRINE: No polyuria or polydipsia. HEMATOLOGIC: No history of bleeding or easy bruising. EXTREMITIES: No history of weakness or limited range of motion. NEUROLOGIC: No history of syncope or near syncopal episodes. SKIN AND INTEGUMENT: No history of abnormal lesions or moles. PSYCHIATRIC: No history of anxiety or depression. PHYSICAL EXAMINATION: VITAL SIGNS: Temperature is 99.2, pulse 102, respirations 18, blood pressure 98/52. GENERAL: Alert, in no acute distress. HEENT: Normocephalic, atraumatic. Pupils equal, round, reactive to light. NECK: Supple, without lymphadenopathy. Trachea midline. HEART: Tachycardic, but regular rhythm. LUNGS: Clear to auscultation bilaterally with some decreased air entry at the right base. ABDOMEN: Obese, soft, nondistended. She does have an easily palpable lower midline hernia, which is reducible. She has minimal tenderness to very deep palpation and no guarding, rebound or peritoneal signs or symptoms. GENITOURINARY: Normal external female genitalia. EXTREMITIES: No clubbing, cyanosis or edema. NEUROLOGIC: Cranial nerves 2-12 are grossly intact. PSYCHIATRIC: Normal mood and affect. SKIN AND INTEGUMENT: Unstageable sacral wound over the coccyx. RECTAL: Showed no masses. I was not able to palpate a widely patent fistula tract. No blood. LABORATORY AND X-RAY DATA: CBC shows white blood cell count of 35.2 thousand, hemoglobin 7.3, platelets 219,000. Creatinine 3.2. Lactate 1.0. Procalcitonin 2.1. Albumin is 1.5. CT scan of the abdomen and pelvis shows left colonic thickening with multiple abscesses in the pelvis. ASSESSMENT AND PLAN: A 72-year-old unhealthy -Afghan female with the above-mentioned comorbid conditions who has a recent history of C. diff colitis and influenza, who is now readmitted with what I suspect to be exacerbated diverticulitis, superimposed on her C. diff colitis with intra-abdominal abscess formation. I recommend continuation of n.p.o. status switching her to vancomycin for her C. diff colitis and broad spectrum antibiotics per the direction of Dr. Galvez with Infectious Disease. I have reviewed the patient's imaging with Interventional Radiology and they will place percutaneous drains into her abscess collections. As the patient is not an ideal surgical candidate, hopefully, we will be able to manage her conservatively with drainage [facility] [address] [place] [address] CONSULTATION Name: TISH RANKIN Room #: 243-P ADM IN M.R.#: [id number] Admission: 11/11/17 Attend Phys: Db Sr, DO Discharge: Date of : 46 Report #: [id number] and antibiotics at this time, although I do reserve the right for emergent exploration, at which time, she would undoubtedly be given a Rebecca's procedure with left colectomy and ostomy creation. At this time, I sincerely appreciate this consult. I did spend greater than 60 minutes interviewing the patient, reviewing her imaging studies with Dr. Galvez and Interventional Radiology as well as describing the treatment plan to the patient and all other providers involved in her care. I sincerely appreciate this consult. I will follow closely and leave any further recommendations in the patient's chart as appropriate. <ELECTRONICALLY SIGNED> By: Shlomo Judd MD, FACS 11/15/17 0931 1608 [id number] Shlomo Judd MD, FACS /nt
--- NOTE | ~2017-11-11 | HC ---
[facility] [place] [address] CONSULTATION Name: TISH RANKIN Room #: 243-P ADM IN M.R.#: [id number] Admission: 11/11/17 Attend Phys: Db Sr DO Discharge: Date of : 47 Report #: [id number] THIS REPORT FOR: //name// CC: [facility] DATE OF SERVICE: 11/12/2017 ATTENDING PHYSICIAN: Db Sr DO REASON FOR CONSULTATION: End-stage renal disease. HISTORY OF PRESENT ILLNESS: This 72-year-old patient well known to our service, has end-stage renal disease on dialysis for several years. She has had progressive illness over the course of this spring. This started in September of this year when she had influenza then complicated by prolonged pneumonia and debility. One month ago, she developed complicating C. diff colitis, which has persisted; has been aggressively treated. She became progressively weaker and more debilitated, has had stays in extended care facility and alf x 2-3. Eventually back in extended care facility over the last couple of days. She dialyzed yesterday at her facility. Mental status and overall condition seemed to deteriorate, transferred here for further evaluation and admitted to the ICU. PAST MEDICAL HISTORY: End-stage renal disease, longstanding diabetes mellitus, previous history of breast cancer status post right mastectomy and renal cell cancer status post left nephrectomy, history of hypertension as well. She has also had previous rectal bleed last year, which was found to be a rectal ulcer and again progressive debility and weakness due to multisystem illnesses. These also included the development of a sacral decubitus ulcer, which has been treated over the last 1-2 months. Past history also includes a history of colovesical fistula and I am not sure as to all the details on that, dialysis with a right AV fistula, has had a previous cholecystectomy, has previous diverticulitis. ALLERGIES: REPORTEDLY PENICILLIN. FAMILY HISTORY: Positive for heart disease and diabetes. SOCIAL HISTORY: . No substantial drug or alcohol abuse, has been living in extended care facility. REVIEW OF SYSTEMS: Very difficult to take due to her overall condition. She really is barely whispering answers and I am unclear as to her level of awareness really, although she is awake. [address] [address] CONSULTATION Name: TISH RANKIN Room #: [facility] IN M.R.#: [id number] Admission: 11/11/17 Attend Phys: Db Sr DO Discharge: Date of : 47 Report #: [id number] PHYSICAL EXAMINATION: GENERAL: Awake, very lethargic, very weak, borderline hypotensive in ICU. SKIN: She does have a decubitus ulcer apparently on her buttock, which is apparently superficial. I did see pictures of it. SKELETAL: Well developed, well nourished, somewhat obese. HEENT: Extraocular movements appear to be full and she does appear to have sight in both eyes. Nasal cannula oxygen in place. Mucous membranes are somewhat dry. NECK: Veins are flat. I hear no carotid bruits. CHEST: Sounds are diminished and shallow. HEART: Distant, but regular. ABDOMEN: Soft. Bowel sounds are present. There is some tenderness in the lower quadrants to palpation, particularly deep palpation. EXTREMITIES: Show no edema. Peripheral pulses are diminished. NEUROLOGIC: She is able to move all extremities, but she is extremely weak and barely moves her legs and arms. LABORATORY DATA: Reveals hemoglobin of 8.3, white count of 29.9, but no bands were recorded, platelets 267. Sodium 139, potassium 4.1, chloride 104, bicarbonate 22, BUN 37, creatinine 3.2, albumin 1.5. ASSESSMENT AND PLAN: 1. Pelvic abscesses. She appears to have developed now pelvic abscesses. She does have this history with Clostridium difficile and a prior history of colovesical fistula and I am not sure as to what detailed workup and findings. We will await to those problems. We will certainly get a surgical consultation to see what we can figure out about all that. She is on antibiotics. We will have Infectious Diseases and Surgery to consult on this patient. 2. Ongoing Clostridium difficile colitis, apparent on the CT scan. 3. Possible pneumonitis, apparent on chest x-ray. 4. History of mastectomy for breast cancer. 5. History of nephrectomy for renal cell cancer. 6. Longstanding diabetes mellitus. 7. Severe debility, weakness, hypotension. 8. Decubitus wound. By: 0744 0904 Ramakrishna Howe MD /nt
[~2017-11-11 15:50] MED LIST changes: +NOVOLOG100 UNIT/1 SUBQ; +PROBIOTIC1 EAC1 PO; +VANCOMYCIN HCL10 GM PO
[2017-11-11 16:14] LABS: HEMATOCRIT 28.3 % (37.0-47.0); HEMOGLOBIN 8.3 gm/dL (12.0-15.0); MCH 24.7 pg (26.0-34.0); MCHC 29.4 g/dL (28.0-37.0); PLATELET COUNT 267 thou/uL (150-400); RBC 3.36 mil/uL (4.20-5.00); RDW 26.7 % (10.5-14.5); WBC 29.9 thou/uL (4.0-11.0)
[2017-11-11 16:59] LABS: ABSOLUTE NEUTROPHILS 28.4 thou/uL (1.4-8.2)
[2017-11-11 17:02] LABS: ANISOCYTOSIS 3+; BURR CELLS 1+; POIKILOCYTOSIS 2+; SCHISTOCYTES OCCASIONAL; TARGET CELLS OCCASIONAL
[2017-11-11 17:38] LABS: ALBUMIN 1.6 g/dL (3.4-5.0); CALCIUM 8.3 mg/dL (8.5-10.1); CREATININE 3.1 mg/dL (0.6-1.0); POTASSIUM 4.4 mmol/L (3.5-5.1); TOTAL BILIRUBIN 0.8 mg/dL (<0.1-1.0); TOTAL PROTEIN 7.4 g/dL (6.4-8.2)
[2017-11-11] MEDS ORDERED: ASPIR 8181 M1 PO (20:35)
[2017-11-11] MEDS ORDERED: ATENOLOL 25 MG25 M1 PO (20:36)
[2017-11-11] MEDS ORDERED: HUMALOG100 UNIT/1 SUBQ (20:38)
[2017-11-11] MEDS ORDERED: LEVEMIR100 UNIT/1 SUBQ (20:39)
[2017-11-11] MEDS ORDERED: CALCIUM CARBO1250 MG PO (20:43)
[2017-11-11] MEDS ORDERED: MIRALAX17 GM PO (20:44)
[2017-11-11] MEDS ORDERED: IMODIUM A-D2 M1 PO (20:47)
[2017-11-12] VITALS (56 sets, daily range): BP systolic 65–106; BP diastolic 29–63
[2017-11-12 05:45] LABS: ALBUMIN 1.5 g/dL (3.4-5.0); CALCIUM 8.1 mg/dL (8.5-10.1); CREATININE 3.2 mg/dL (0.6-1.0); PHOSPHORUS 3.5 mg/dL (2.5-4.9); POTASSIUM 4.1 mmol/L (3.5-5.1)
[2017-11-12 08:23] LABS: HEMATOCRIT 24.4 % (37.0-47.0); HEMOGLOBIN 7.3 gm/dL (12.0-15.0); MCH 24.6 pg (26.0-34.0); MCHC 29.7 g/dL (28.0-37.0); MCV 82.9 fL (80.0-100.0); RBC 2.95 mil/uL (4.20-5.00); WBC 35.2 thou/uL (4.0-11.0)
[2017-11-13] VITALS (34 sets, daily range): BP systolic 49–112; BP diastolic 33–63
[2017-11-13 03:34] LABS: CALCIUM 7.6 mg/dL (8.5-10.1); POTASSIUM 3.2 mmol/L (3.5-5.1)
[2017-11-13 04:03] LABS: HEMATOCRIT 24.3 % (37.0-47.0); HEMOGLOBIN 7.1 gm/dL (12.0-15.0); MCV 86.1 fL (80.0-100.0); PLATELET COUNT 234 thou/uL (150-400); RBC 2.83 mil/uL (4.20-5.00); WBC 39.4 thou/uL (4.0-11.0)
[2017-11-13 05:06] LABS: ABSOLUTE NEUTROPHILS 37.8 thou/uL (1.4-8.2); HYPOCHROMASIA 1+; MYELOCYTES 1 %; POLYCHROMASIA OCCASIONAL
[2017-11-13 05:07] LABS: LARGE PLATELETS OCCASIONAL; MACROCYTES 1+; MICROCYTES 2+
[2017-11-13 05:08] LABS: ANISOCYTOSIS 3+
[2017-11-14] VITALS (42 sets, daily range): BP systolic 75–123; BP diastolic 44–62
[2017-11-14 05:40] LABS: HEMATOCRIT 24.8 % (37.0-47.0); HEMOGLOBIN 7.1 gm/dL (12.0-15.0); MCH 24.9 pg (26.0-34.0); MCHC 28.5 g/dL (28.0-37.0); MCV 87.2 fL (80.0-100.0); PLATELET COUNT 174 thou/uL (150-400); RBC 2.84 mil/uL (4.20-5.00); RDW 26.4 % (10.5-14.5); WBC 38.3 thou/uL (4.0-11.0)
[2017-11-14 05:46] LABS: CALCIUM 7.3 mg/dL (8.5-10.1); POTASSIUM 3.4 mmol/L (3.5-5.1)
[2017-11-14 05:50] LABS: CREATININE 2.8 mg/dL (0.6-1.0)
[2017-11-14 07:37] LABS: ABSOLUTE NEUTROPHILS 33.3 thou/uL (1.4-8.2); MYELOCYTES 1 %
[2017-11-14 07:38] LABS: ANISOCYTOSIS 2+; HYPOCHROMASIA 2+; POLYCHROMASIA SLIGHT
[2017-11-15] VITALS (41 sets, daily range): BP systolic 80–141; BP diastolic 49–83
[2017-11-15 08:38] LABS: PLATELET COUNT 150 thou/uL (150-400)
[2017-11-15 08:40] LABS: CALCIUM 7.5 mg/dL (8.5-10.1); CREATININE 3.6 mg/dL (0.6-1.0); HEMATOCRIT 21.3 % (37.0-47.0); MCH 25.1 pg (26.0-34.0); MCHC 28.9 g/dL (28.0-37.0); MCV 86.9 fL (80.0-100.0); RBC 2.46 mil/uL (4.20-5.00); RDW 26.7 % (10.5-14.5)
[2017-11-15 08:44] LABS: POTASSIUM 2.9 mmol/L (3.5-5.1)
[2017-11-15 08:46] LABS: HEMOGLOBIN 6.2 gm/dL (12.0-15.0); WBC 41.1 thou/uL (4.0-11.0)
[2017-11-15 11:28] LABS: ABSOLUTE NEUTROPHILS 36.2 thou/uL (1.4-8.2)
[2017-11-15 11:29] LABS: ANISOCYTOSIS 3+; POLYCHROMASIA SLIGHT
[2017-11-15 22:09] LABS: HEP B SURFACE Ab(ANTI-HBS Reactive (()); HEPATITIS B SURFACE AG Negative (Negative)
[2017-11-16] VITALS (42 sets, daily range): BP systolic 77–121; BP diastolic 46–85
[2017-11-16 04:53] LABS: HEMATOCRIT 26.6 % (37.0-47.0); MCH 26.7 pg (26.0-34.0); MCHC 31.5 g/dL (28.0-37.0); MCV 84.7 fL (80.0-100.0); PLATELET COUNT 140 thou/uL (150-400); RBC 3.14 mil/uL (4.20-5.00); RDW 22.3 % (10.5-14.5); WBC 35.9 thou/uL (4.0-11.0)
[2017-11-16 05:02] LABS: HEMOGLOBIN 8.4 gm/dL (12.0-15.0)
[2017-11-16 05:23] LABS: ALBUMIN 1.1 g/dL (3.4-5.0); CALCIUM 7.5 mg/dL (8.5-10.1); CREATININE 1.3 mg/dL (0.6-1.0); PHOSPHORUS 1.5 mg/dL (2.5-4.9); POTASSIUM 3.8 mmol/L (3.5-5.1)
[2017-11-16 06:48] LABS: ABSOLUTE NEUTROPHILS 30.9 thou/uL (1.4-8.2)
[2017-11-16 06:49] LABS: ANISOCYTOSIS 3+; HYPOCHROMASIA 2+; POLYCHROMASIA SLIGHT; TARGET CELLS FEW
[2017-11-16 06:50] LABS: SCHISTOCYTES OCCASIONAL
[2017-11-16 06:52] LABS: POIKILOCYTOSIS SLIGHT
[2017-11-17] VITALS (32 sets, daily range): BP systolic 81–118; BP diastolic 24–73
[2017-11-17 06:58] LABS: HEMATOCRIT 31.5 % (37.0-47.0); HEMOGLOBIN 9.7 gm/dL (12.0-15.0); MCH 26.9 pg (26.0-34.0); MCHC 30.7 g/dL (28.0-37.0); MCV 87.7 fL (80.0-100.0); PLATELET COUNT 102 thou/uL (150-400); RDW 23.5 % (10.5-14.5); WBC 28.1 thou/uL (4.0-11.0)
[2017-11-17 07:16] LABS: ALBUMIN 1.2 g/dL (3.4-5.0); CALCIUM 7.3 mg/dL (8.5-10.1); CREATININE 2.1 mg/dL (0.6-1.0); POTASSIUM 4.4 mmol/L (3.5-5.1); TOTAL BILIRUBIN 0.9 mg/dL (<0.1-1.0); TOTAL PROTEIN 5.6 g/dL (6.4-8.2)
[2017-11-17 07:23] LABS: ABSOLUTE NEUTROPHILS 23.9 thou/uL (1.4-8.2); ANISOCYTOSIS 2+; HYPOCHROMASIA 1+; METAMYELOCYTES 2 %; PLATELET ESTIMATE NORMAL
[2017-11-18] VITALS (60 sets, daily range): BP systolic 38–117; BP diastolic 15–95
[2017-11-18 04:40] LABS: HEMATOCRIT 29.7 % (37.0-47.0); HEMOGLOBIN 9.1 gm/dL (12.0-15.0); MCH 26.6 pg (26.0-34.0); MCHC 30.8 g/dL (28.0-37.0); MCV 86.4 fL (80.0-100.0); PLATELET COUNT 106 thou/uL (150-400); RBC 3.43 mil/uL (4.20-5.00); WBC 29.8 thou/uL (4.0-11.0)
[2017-11-18 04:48] LABS: CALCIUM 7.4 mg/dL (8.5-10.1); CREATININE 2.7 mg/dL (0.6-1.0)
[2017-11-18 04:55] LABS: POTASSIUM 3.3 mmol/L (3.5-5.1)
[2017-11-18 05:14] LABS: ABSOLUTE NEUTROPHILS 27.7 thou/uL (1.4-8.2); ANISOCYTOSIS 4+; MACROCYTES 1+; POLYCHROMASIA OCCASIONAL
[2017-11-18 08:24] LABS: INR 1.3
[2017-11-18 15:48] LABS: HEMATOCRIT 20.3 % (37.0-47.0)
[2017-11-18 15:52] LABS: HEMOGLOBIN 6.4 gm/dL (12.0-15.0)
[2017-11-18 18:07] LABS: HCO3 13.5 mmol/L (22.0-26.0); PO2 76.2 mmHg (80.0-100.0)
[2017-11-18 18:08] LABS: pH 7.286 (7.360-7.450)
[2017-11-19] VITALS (19 sets, daily range): BP systolic 40–137; BP diastolic 20–77
== END 2017-11-19 02:58 | DRG 853 ==
LOC: ER 15:50 → EROBS 17:44 → ICU 17:44
PROVIDERS: Emergency Medicine; Family Medicine; Hospitalist; Internal Medicine Nephrology; Nurse Practitioner Family; Physician Assistant; Radiology Diagnostic Radiology; Specialist
PROC: 0W9J30Z Drainage of Pelvic Cavity with Drainage Device, Percutaneous Approach (ICD-10-PCS; principal; 2017-11-12)
PROC: 5A1D70Z Performance of Urinary Filtration, Intermittent, Less than 6 Hours Per Day (ICD-10-PCS; 2017-11-13)
PROC: 0W9J30Z Drainage of Pelvic Cavity with Drainage Device, Percutaneous Approach (ICD-10-PCS; 2017-11-14)
PROC: 30233N1 Transfusion of Nonautologous Red Blood Cells into Peripheral Vein, Percutaneous Approach (ICD-10-PCS; 2017-11-15)
PROC: B5181ZA Fluoroscopy of Superior Vena Cava using Low Osmolar Contrast, Guidance (ICD-10-PCS; 2017-11-15)
PROC: 5A1D70Z Performance of Urinary Filtration, Intermittent, Less than 6 Hours Per Day (ICD-10-PCS; 2017-11-15)
PROC: 02HV33Z Insertion of Infusion Device into Superior Vena Cava, Percutaneous Approach (ICD-10-PCS; 2017-11-15)
PROC: B548ZZA Ultrasonography of Superior Vena Cava, Guidance (ICD-10-PCS; 2017-11-15)
PROC: 05743ZZ Dilation of Left Innominate Vein, Percutaneous Approach (ICD-10-PCS; 2017-11-18)
PROC: 5A1D70Z Performance of Urinary Filtration, Intermittent, Less than 6 Hours Per Day (ICD-10-PCS; 2017-11-19)
DX: A41.9 Sepsis, unspecified organism (principal); J69.0 Pneumonitis due to inhalation of food and vomit; N18.6 End stage renal disease; E43 Unspecified severe protein-calorie malnutrition; A04.71 Enterocolitis due to Clostridium difficile, recurrent; I47.1 Supraventricular tachycardia; I12.0 Hypertensive chronic kidney disease with stage 5 chronic kidney disease or end stage renal disease; K57.20 Diverticulitis of large intestine with perforation and abscess without bleeding; T82.868A Thrombosis due to vascular prosthetic devices, implants and grafts, initial encounter; G47.33 Obstructive sleep apnea (adult) (pediatric); I25.10 Atherosclerotic heart disease of native coronary artery without angina pectoris; L89.159 Pressure ulcer of sacral region, unspecified stage; E87.8 Other disorders of electrolyte and fluid balance, not elsewhere classified; B95.2 Enterococcus as the cause of diseases classified elsewhere; R65.20 Severe sepsis without septic shock; E78.5 Hyperlipidemia, unspecified; E66.9 Obesity, unspecified; E11.22 Type 2 diabetes mellitus with diabetic chronic kidney disease; F32.9 Major depressive disorder, single episode, unspecified; D63.8 Anemia in other chronic diseases classified elsewhere; Z68.31 Body mass index [BMI] 31.0-31.9, adult; Z90.11 Acquired absence of right breast and nipple; Z90.5 Acquired absence of kidney; Z98.42 Cataract extraction status, left eye; Z98.41 Cataract extraction status, right eye; Z90.49 Acquired absence of other specified parts of digestive tract; Z85.528 Personal history of other malignant neoplasm of kidney; Z98.61 Coronary angioplasty status; Y92.89 Other specified places as the place of occurrence of the external cause; Z85.3 Personal history of malignant neoplasm of breast; Z86.73 Personal history of transient ischemic attack (TIA), and cerebral infarction without residual deficits; Z79.4 Long term (current) use of insulin; Z79.82 Long term (current) use of aspirin; Z79.899 Other long term (current) drug therapy; Z88.0 Allergy status to penicillin; Z99.2 Dependence on renal dialysis; Z83.3 Family history of diabetes mellitus; Z82.49 Family history of ischemic heart disease and other diseases of the circulatory system; Z66 Do not resuscitate
CPT/HCPCS: 10078; 32100; 32110